=== PATIENT | male | born 1985 | race Hispanic/Latino ===

== ENCOUNTER 2016-11-17 16:08 | Emergency (ER) | payer SELFPAY ==
[~2016-11-17] VITALS: Ht 175.3 cm; Wt 80.0 kg
[2016-11-17] MEDS ORDERED: NORCO1 TA1 PO (18:21)
[2016-11-17] MEDS ORDERED: CEPHALEXIN500 MG PO (18:21)
[2016-11-17 18:26] VITALS: BP 148/95
== END 2016-11-17 18:32 | disposition home or self-care (01) | DRG 605 ==
LOC: ED 16:08 → EDBD 16:54 → ED 18:32
PROC: 0HQGXZZ Repair Left Hand Skin, External Approach (ICD-10-PCS; principal; 2016-11-17)
DX: S61.012A Laceration without foreign body of left thumb without damage to nail, initial encounter (principal); W26.0XXA Contact with knife, initial encounter; Y93.G3 Activity, cooking and baking; Y92.000 Kitchen of unspecified non-institutional (private) residence as the place of occurrence of the external cause

== ENCOUNTER 2016-11-18 10:50 | Emergency (ER) | payer SELFPAY ==
[~2016-11-18] VITALS: Ht 175.3 cm; Wt 100.0 kg
[~2016-11-18 10:50] MED LIST: CEPHALEXIN500 MG PO; NORCO1 TA1 PO
[2016-11-18 11:31] VITALS: BP 149/92
== END 2016-11-18 11:42 | disposition home or self-care (01) | DRG 950 ==
LOC: ED 10:50
DX: S61.012D Laceration without foreign body of left thumb without damage to nail, subsequent encounter (principal); X58.XXXD Exposure to other specified factors, subsequent encounter